=== PATIENT | male | born 1995 | race Caucasian/White ===

== ENCOUNTER 2017-01-04 16:26 | Emergency (ER) | payer SELFPAY ==
[~2017-01-04] VITALS: Ht 182.9 cm; Wt 116.0 kg
[~2017-01-04 16:26] MED LIST: HYDR-5688 PO; TYL325X PO
[2017-01-04 16:41] VITALS: TEMP 36.9; Ht 182.9 cm; Wt 116.0 kg
[2017-01-04] MEDS ORDERED: HYDR-5688 PO ×2 (17:12→19:40)
[2017-01-04] MEDS ORDERED: CYCL10TA6 PO (17:12)
--- NOTE | 2017-01-04 17:13 | EMERGENCY ROOM VISIT NOTE ---
ED Visit Note First contact with patient: 17:00 CHIEF COMPLAINT: Low back pain HISTORY OF PRESENT ILLNESS: This 21-year-old male patient presents to the emergency department ambulatory complaining of pain in the low back which began this morning. The patient reports that he was lifting something when he developed a sharp, stabbing pain in the left side of his low back. The pain is worse with walking or lying down. He states it is better if he sits forward. The pain was gradual in onset, is now constant and worse with movement. The patient notes the pain as sharp and a 6/10. The patient has taken ibuprofen and Tylenol without relief of the pain. The patient denies any loss of control of their bowel or bladder functions. There has been no leg numbness or weakness , and no change in sensation. No nausea or vomiting or abdominal pain. No chest pain or shortness of breath. No dysuria or increased urinary frequency. The patient does report a history of muscles in his back and inflammation of the discs. REVIEW OF SYSTEMS: A review of systems was performed with positives and pertinent negatives listed in the history of present illness. All other systems were reviewed and are negative. ALLERGIES: Morphine, naproxen, tramadol MEDICATIONS: No chronic medications PMH: No significant past medical history. SOCIAL HISTORY: The patient lives locally with family. PHYSICAL EXAM: VITALS: Vitals are noted on the nurse's note and reviewed by myself. Vital signs stable. GENERAL: This is a 21-year-old male, in no acute distress, nondiaphoretic, well- developed well-nourished. SKIN: The skin was without rashes, erythema, edema, or bruising. Capillary refill less than 2 seconds. NECK: Supple without nuchal rigidity. No cervical spine tenderness. No paraspinous muscle tenderness. HEART: Regular rate and rhythm without murmurs gallops or rubs. LUNGS: Clear to auscultation bilaterally without wheezes, rales or rhonchi. ABDOMEN: Positive bowel sounds x 4. Normal tympanic percussion. Soft, nontender, without masses or organomegaly. Dominguez sign negative. MUSCULOSKELETAL: No muscle atrophy, erythema, or edema noted of the back. There is no tenderness over the lumbar spinous processes. There is vague tenderness over the lumbar paraspinous muscles. There is no tenderness over the thoracic spine or paraspinous muscles. There are no muscle spasms present. The patient is slow to move around with maximum tenderness with extension. Negative straight leg raise test. NEURO: Patient was alert and oriented to person place and time. Normal sensation to light and sharp touch. Deep tendon reflexes 2+ in the lower extremities. Dorsalis pedis pulse 2+ bilaterally. Strength 5/5 and equal in the bilateral lower extremities. EMERGENCY DEPARTMENT COURSE: The patient was evaluated as above. His history and exam is not concerning for cauda equina syndrome or cord compression. The patient was given a home pack and prescription of Flexeril and [place] for pain. He was instructed to follow-up with his primary care provider for further evaluation of his back pain. He Was educated regarding worrisome symptoms which would necessitate return to the emergency department. The [place] prescription drug monitoring program was queried and no red flags were identified. The patient verbalized understanding and was discharged home in good condition. DIAGNOSIS: Lumbar back pain Current/Historical Medications Scheduled Cyclobenzaprine Hcl (Flexeril), 10 MG PO TID Ibuprofen (Advil), 200-600 MG PO Q4H Scheduled PRN Acetaminophen (Tylenol), 650 MG PO DIRECTED PRN for Pain Acetaminophen (Tylenol), 1,000 MG PO DIRECTED PRN for Pain Hydrocodone/Acetaminophen 5MG/325MG ([place] 5MG/325MG), 1-2 TABLET PO Q4H PRN for Pain Hydrocodone/Acetaminophen 5MG/325MG ([place] 5MG/325MG), 1-2 TABLET PO Q4H PRN for Pain Allergies Coded Allergies: Naproxen (Unverified Allergy, Mild, ITCHING/RASH, 10/06/16) Morphine (Unverified Allergy, Unknown, nausea/vomiting, 10/06/16) Tramadol (Unverified Allergy, Unknown, ITCHING/RASH/VOMITING, 10/06/16) Vital Signs Date Time Temp Pulse Resp B/P Pulse Ox O2 Delivery O2 Flow Rate FiO2 01/04/17 17:26 88 16 135/62 98 01/04/17 16:41 36.9 92 16 126/77 98 Room Air Medications Administered Medications (Trade) Dose Ordered Sig/Karlene Route Start Time Stop Time Status Last Admin Dose Admin Cyclobenzaprine HCl (FLEXERIL 10MG Home Pack) 1 homepack UD ONCE PO 01/04/17 17:15 01/04/17 17:16 DC 01/04/17 17:23 1 HOMEPACK Acetaminophen/ Hydrocodone Bitart ([place] 5/325mg Home Pack) 1 homepack UD ONCE PO 01/04/17 17:15 01/04/17 17:16 DC 01/04/17 17:24 1 HOMEPACK Departure Information Impression Primary Impression: Strain of lumbar region Dispostion Home / Self-Care Condition GOOD Prescriptions Hydrocodone/Acetaminophen 5MG/325MG ([place] 5MG/325MG) Tab 1-2 TABLET PO Q4H Y for Pain, #12 TAB For Initial Treatment Prov: Rolanda Spaulding .KARLIE 01/04/17 Cyclobenzaprine Hcl (FLEXERIL) 10 Mg Tab 10 MG PO TID for 3 Days, #9 TAB Prov: Rolanda Spaulding PA-C 01/04/17 Referrals No Doctor, Assigned (PCP) Patient Instructions My [facility] Additional Instructions You have been treated in the Emergency Department for Back Pain. You have been prescribed [place] to be used for pain control. This is a narcotic medication. You cannot drive or consume alcohol while on this medicine. This medicine should only be used for pain that cannot be controlled with over-the- counter pain medicines. You have been prescribed Flexeril (cyclobenzaprine) 1-2 tabs orally, three times per day. Do NOT exceed 30 mg (6 tabs) per day. Take your first dose at bedtime as it can make you drowsy. Always take all medications as prescribed. For pain control, you can use the following [id number] medicines (if >12 yo): - Regular strength (325mg/tab) Tylenol (acetaminophen) 2 tabs every 4-6 hours as needed. Do not exceed 12 tablets in a 24 hour period. Avoid taking more than 4 grams (4000 mg) of Tylenol per day. This includes any other sources of acetaminophen you may take on a regular basis. - Regular strength (200 mg/tab) Advil (ibuprofen) 1-2 tabs every 4-6 hours as needed. Do not exceed a dose of 3200 mg per day. If this is an acute injury, ice can be applied to the area of pain for the first 3 days to help decrease pain and inflammation. After the first 3 days, a heating pad can be used over the area for continued soothing relief. You should schedule a follow-up appointment in 2-3 days with your Primary Care Provider for further evaluation and treatment of your back pain. Return to the Emergency Department if your current symptoms worsen despite treatment course outlined above, or if you develop any of the following symptoms : intractable pain despite aforementioned treatment course, loss of control of your bowel or bladder, numbness or tingling in your groin, or development of a fever. Problem Qualifiers Primary Impression: Strain of lumbar region Encounter type: initial encounter Qualified Codes: S39.012A - Strain of muscle, fascia and tendon of lower back, initial encounter
[2017-01-04] MEDS ORDERED: NORCO 5/325MG HOME PACK PO ONE (17:15)
[2017-01-04] MEDS ORDERED: FLEXERIL HOME PACK 10 MG VIAL PO ONE (17:15)
[2017-01-04 17:26] VITALS: BP 135/62; PULSE 88; O2SAT 98
[2017-02-24] MEDS ORDERED: ACET-1311 PO (10:22)
== END 2017-01-04 17:27 | disposition home or self-care (01) ==
LOC: C.EDB 16:26 → C.EDD 17:27
DX: S39.012A Strain of muscle, fascia and tendon of lower back, initial encounter (principal); X50.0XXA Overexertion from strenuous movement or load, initial encounter

== ENCOUNTER 2017-02-04 17:12 | Emergency (ER) | payer SELFPAY ==
[~2017-02-04] VITALS: Ht 182.9 cm; Wt 111.9 kg
[2017-02-04 17:25] VITALS: TEMP 36.7; Ht 182.9 cm; Wt 111.9 kg
[2017-02-04] MEDS ORDERED: HYDR-5688 PO (18:25)
[2017-02-04] MEDS ORDERED: IBUP-1050 PO (18:48)
[2017-02-04] MEDS ORDERED: ACET-1256 PO (18:48)
[2017-02-04 18:51] VITALS: BP 149/90; PULSE 78; O2SAT 100
--- NOTE | 2017-02-05 23:13 | EMERGENCY ROOM VISIT NOTE ---
ED Visit Note First contact with patient: 17:28 CHIEF COMPLAINT: Tooth pain. HISTORY OF PRESENT ILLNESS: Mr. Guillen is a 21-year-old white male who ambulates into the ED complaining of dental pain. He reports a progressive dental pain for the last 3 days over the mandibular and maxillary wisdom teeth and the left maxillary canine tooth. He reports initially the pain was mild and has gradually increased in intensity. Currently he describes the discomfort as a deep achy sensation. His pain is nonradiating. He rates his discomfort 6/10. He has been using over-the- counter medications without relief of his discomfort. He denies any associated symptoms including fevers, chills, sweats, skin eruptions, skin color changes, recent dental trauma, sore throats, difficulty swallowing, voice changes, drooling, facial swelling . REVIEW OF SYSTEMS: As noted above in History of Present Illness. PMH: Patient denies. CURRENT MEDICATION: Patient denies. ALLERGIES TO MEDICATION: Morphine, naproxen, tramadol. SOCIAL HISTORY: Patient is currently employed; he lives with his parents and feels safe in his home environment; he admits to tobacco use and denies alcohol use. PHYSICAL EXAM: Vital Signs: Date Time Temp Pulse Resp B/P Pulse Ox O2 Delivery O2 Flow Rate FiO2 02/04/17 18:51 78 16 149/90 100 02/04/17 17:25 36.7 84 16 147/95 100 General: 21 year-old white male in mild distress due to pain, nontoxic appearing , afebrile and hemodynamically stable. Neurological: Awake, alert and oriented to person, place and time. Answering questions appropriately and following commands. Normal gait. Good hand eye coordination. No focal motor or sensory deficits. Skin: Warm, dry and pink. No soft tissue lesions, rashes, or trauma noted. HEENT: Atraumatic and normocephalic. Oral cavity is moist and pink. Airway is patent. Uvula is midline and no abscesses are seen. Airway is patent. Speech is normal. No drooling. No intraoral trauma is noted. Patient still has his wisdom teeth so all of his maxillary and mandibular teeth are packed in his mouth pretty tight and there is minimalbetween the teeth. The right maxillary canine is slightly darkened in color but I do not appreciate any abscess. There is no local gingiva erythema or edema. There is no palpable abscesses. No cervical or submandibular lymphadenopathy. ED COURSE: Patient is assessed as noted above. Patient is educated about his findings and instructed on he treatment plan; he verbalizes understanding and agreement with this plan. CLINIC IMPRESSION: Dental pain. DISPOSITION: Patient discharged home in stable condition; prior to departure he was reassessed and subjectively reported he was feeling better and rated his discomfort 4/10. PLAN: Comfort measures were discussed including a sliding pain scale of ibuprofen, acetaminophen and [place]. He was warned that [place] is a narcotic and once taking this medication she should not drink, drive or do any activities that require her full attention. Patient was encouraged to keep his followup with personal dentist for definitive care and treatment. Patient was encouraged to return the ED for uncontrolled pain, facial swelling or fevers or any new/concerning symptoms.
[2017-02-24] MEDS ORDERED: ACET-1311 PO (10:22)
== END 2017-02-04 18:52 | disposition home or self-care (01) ==
LOC: C.EDB 17:13 → C.EDD 18:52
DX: K08.89 Other specified disorders of teeth and supporting structures (principal)

== ENCOUNTER 2017-02-23 10:10 | Emergency (ER) | payer SELFPAY ==
[~2017-02-23] VITALS: Ht 182.9 cm; Wt 113.3 kg
[~2017-02-23 10:10] MED LIST changes: +ACET-1256 PO; +IBUP-1050 PO; -TYL325X PO
[2017-02-23 10:16] VITALS: TEMP 36.8; Ht 182.9 cm; Wt 113.3 kg
[2017-02-23] MEDS ORDERED: IBUPROFEN 600 MG TAB PO STA (10:41)
[2017-02-23] MEDS ORDERED: IBUP-1427 PO (10:45)
--- NOTE | 2017-02-23 10:45 | EMERGENCY ROOM VISIT NOTE ---
History Report prepared by Tea: Narcisa Parikh Under the Supervision of: Dr. Contreras Power M.D. First contact with patient: 10:30 Chief Complaint: DENTAL PAIN Stated Complaint: SWELLING IN MOUTH AND MOUTH PAIN Nursing Triage Summary: seen in er 2 wks ago for dental pain, seen by dentist a week later, appt with dentist march 11 for extraction, pt states he has swelling in his mouth and it became worse last night History of Present Illness The patient is a 21 year old male who presents to the Emergency Room with complaints of worsening bilateral dental pain and swelling. The patient was initially seen for mandibular and maxillary wisdom teeth pain 2 weeks ago in the ED. He was discharged with Vicodin at that time. He was not put on antibiotics, as there were no signs of infection. Since then, his pain has been worsening. He has noticed some swelling to the left side of his jaw and has also noticed a lump on the right side of his jaw. The patient is only able to eat very soft foods, as eating any more solid foods worsens his pain. He has followed up with a dentist and has an extraction scheduled for March 11. He has been taking Tylenol and ibuprofen without relief. Source of History: patient Onset: a few weeks ago Position: teeth (wisdom) Timing: worsening Modifying Factors (Worsening): eating Review of Systems All systems have been listed, reviewed, and are negative other than those previously mentioned. Please see Additional Medical History Sheet. Past Medical & Surgical Medical Problems: (1) Back strain Family History Diabetes mellitus Social History Smoking Status: Current Every Day Smoker Alcohol Use: none Housing Status: lives with family Occupation Status: unemployed Current/Historical Medications Scheduled PRN Acetaminophen (Tylenol), 325 MG PO DIRECTED PRN for Pain Ibuprofen (Advil), 200-600 MG PO Q4H PRN for Pain Ibuprofen Tab (Motrin), 600 MG PO Q6H PRN for Pain Allergies Coded Allergies: Naproxen (Unverified Allergy, Mild, ITCHING/RASH, 02/23/17) Morphine (Unverified Allergy, Unknown, nausea/vomiting, 02/23/17) Tramadol (Unverified Allergy, Unknown, ITCHING/RASH/VOMITING, 02/23/17) Physical Exam Vital Signs Date Time Temp Pulse Resp B/P Pulse Ox O2 Delivery O2 Flow Rate FiO2 02/23/17 10:55 83 17 125/80 95 02/23/17 10:16 36.8 93 18 161/80 97 Room Air Physical Exam GENERAL: Patient awake, alert, oriented x 3. Patient follows commands. Patient does not appear toxic. Patient is adequately hydrated and well- nourished. SKIN: No erythema, pallor, cyanosis or rash HEENT: Normal head, pupils equal, reactive to light and accommodation. Patient has what appear to be 4 wisdom teeth coming in with minor swelling. Ears normal. Oral cavity and posterior pharynx appear normal. Neck: No neck vein distention. No cervical or submandibular adenopathy. Medical Decision & Procedures Medications Administered Medications (Trade) Dose Ordered Sig/Karlene Route Start Time Stop Time Status Last Admin Dose Admin Ibuprofen (Motrin Tab) 600 mg NOW STAT PO 02/23/17 10:41 02/23/17 10:42 DC 02/23/17 10:55 600 MG ED Course 1034: Past medical records reviewed. The patient was evaluated in room A11. A complete history and physical examination was performed. 1041: Ordered Ibuprofen 600 mg PO. 1051: I discussed today's findings with the patient. He verbalized agreement of the treatment plan. The patient was discharged home. Medical Decision Nurses notes reviewed. Medical history sheet reviewed. Differential diagnosis includes but is not limited to: impacted wisdom teeth, odontalgia, dental abscesses. The patient is here with dental pain but does not appear to have an abscess/ infection. The patient states that he is allergic to Toradol but has taken ibuprofen. I do not feel comfortable providing additional narcotics for this patient. He is received at least 4 doses of narcotics from our institution the past several months. I have asked the patient to request his pain medications from his dentist. I do not believe the patient requires antibiotics at this time. The patient is scheduled to have extractions performed in March. [place] Drug Monitoring Program Search Results: patient reviewed within database Drug Monitoring Findings: Patient has 4 prescriptions for hydrocodone in the past 7 months. Impression Primary Impression: Odontalgia Scribe Attestation The scribe's documentation has been prepared under my direction and personally reviewed by me in its entirety. I confirm that the note above accurately reflects all work, treatment, procedures, and medical decision making performed by me. Departure Information Dispostion Home / Self-Care Prescriptions Ibuprofen Tab (MOTRIN) 600 Mg Tab 600 MG PO Q6H Y for Pain, #30 TAB Prov: Contreras Power M.D. 02/23/17 Referrals No Doctor, Assigned (PCP) Patient Instructions My [facility] Additional Instructions 600 mg ibuprofen every 6 hours until pain is relieved. Follow-up with your dentist for extractions as scheduled.
[2017-02-23 10:55] VITALS: BP 125/80; PULSE 83; O2SAT 95
--- NOTE | 2017-02-23 12:26 | Pharmacy Progress Note ---
ED Pharmacist Progress Note Date of Service: Feb 23, 2017. Received phone call from pharmacist Irina at [facility] ([phone]). She was concerned that pt should not have Rx for IBU filled as he reported allergy to NSAIDs. Dr Power's H&P stated the patient had been taking both IBU and Tylenol prior to evaluation in the ER. He had also received a dose of IBU in the ER today. I presented this information to the pharmacist. She stated she would discuss with the patient when he returned.
[2017-02-23] MEDS ORDERED: PENI500T2 PO (21:58)
[2017-02-24] MEDS ORDERED: ACET-1311 PO (10:22)
== END 2017-02-23 11:10 | disposition home or self-care (01) ==
LOC: C.EDB 10:11 → C.EDA 11:10
DX: K08.89 Other specified disorders of teeth and supporting structures (principal); Z83.3 Family history of diabetes mellitus; F17.210 Nicotine dependence, cigarettes, uncomplicated

== ENCOUNTER 2017-02-23 20:59 | Emergency (ER) | payer SELFPAY ==
[~2017-02-23] VITALS: Ht 182.9 cm; Wt 114.0 kg
[~2017-02-23 20:59] MED LIST changes: +IBUP-1427 PO
[2017-02-23 21:10] VITALS: TEMP 37.1; Ht 182.9 cm; Wt 114.0 kg
[2017-02-23] MEDS ORDERED: PENI500T2 PO (21:58)
--- NOTE | 2017-02-23 21:58 | EMERGENCY ROOM VISIT NOTE ---
ED Visit Note First contact with patient: 21:20 CHIEF COMPLAINT: Continued bilateral dental pain 2 weeks HISTORY OF PRESENT ILLNESS: Patient is a 21-year-old white male who returns to the emergency department for evaluation of dental pain. He complains of right and left-sided dental pain. Is going on for about 2 weeks. He was seen here couple of weeks ago and placed on a course of [place]. It was not felt that he required antibiotics at that time. Patient subsequently had follow-up with a dentist and is scheduled for oral surgery in the beginning of March. Patient was here earlier today again for complaints of dental pain. He was prescribed ibuprofen 600 mg tablets. Patient took one of these, then states that it made him vomit. He reports an allergy to naproxen, which causes itching and a rash, but per documentation he has tolerated ibuprofen without difficulty. He notes that he has a lump on the right side of his jaw, and feels like he has swollen lymph nodes in the left side of his jaw. He is concerned that he needs antibiotics and that his extraction will not take place if he develops an infection. He denies any drainage or discharge from the mouth. No fever or chills. REVIEW OF SYSTEMS: Review of systems as per HPI. All other systems reviewed were negative. At least 6 systems reviewed. PMH: Electronic medical records are reviewed and summarized as above/below. See Problem List. SOCIAL HISTORY: Patient lives at home. Smoker. PHYSICAL EXAM: Vital Signs: Reviewed Nurse's notes. CONSTITUTIONAL: Patient is a well-appearing 21-year-old white male who is awake and alert and in no acute distress. Vital signs are stable. EARS: Tympanic membranes intact, not inflamed, have normal contour. External canals clear. MOUTH: Overall the patient has fair dentition. The erupting wisdom teeth are partially covered by soft tissue. They are tender to palpation. He has a fractured right upper molar as well. Some general gingival inflammation is noted. No focal swelling along the gumline. No abscess. Mucous membranes moist, no lesions, tongue and gums appear normal. THROAT: No pharyngeal injection, exudates, or tonsillar hypertrophy. Airway is patent. No trismus noted. FACE: No facial swelling is appreciated. No cellulitic changes. NECK: No lymphadenopathy. ED course: The patient was seen and evaluated as above. His old records are reviewed. To cover for any potential apical abscess, he will be placed on a course of Pen-Vee K. He was encouraged to use acetaminophen for pain. He can also try taking the ibuprofen but with food to minimize the risk of stomach upset. It was not felt that he required additional prescription narcotics. He was encouraged to follow-up with his oral surgeon for extraction as she has scheduled. He does not have any evidence for facial cellulitis, drainable abscess or Matthew's angina at this time. Problem List Medical Problems: (1) Arm pain, right Status: Resolved (2) Back strain Status: Resolved (3) Pain, dental Status: Resolved (4) Strain of lumbar region Status: Resolved Current/Historical Medications Scheduled Penicillin V Potassium (Veetids), 500 MG PO QID Scheduled PRN Acetaminophen (Tylenol), 325 MG PO DIRECTED PRN for Pain Allergies Coded Allergies: Naproxen (Unverified Allergy, Mild, ITCHING/RASH, 02/23/17) Morphine (Unverified Allergy, Unknown, nausea/vomiting, 02/23/17) Tramadol (Unverified Allergy, Unknown, ITCHING/RASH/VOMITING, 02/23/17) Vital Signs Date Time Temp Pulse Resp B/P Pulse Ox O2 Delivery O2 Flow Rate FiO2 02/23/17 22:13 99 19 125/84 99 02/23/17 21:10 37.1 101 16 149/86 95 Room Air Medications Administered Medications (Trade) Dose Ordered Sig/Karlene Route Start Time Stop Time Status Last Admin Dose Admin Penicillin V Potassium (Pen-Vk 500MG Home Pack) 1 homepack UD ONCE PO 02/23/17 22:00 02/23/17 22:01 DC 02/23/17 22:00 1 HOMEPACK Departure Information Impression Primary Impression: Odontalgia Prescriptions Penicillin V Potassium (VEETIDS) 500 Mg Tab 500 MG PO QID, #40 TAB Prov: Latia Lira PA 02/23/17 Referrals No Doctor, Assigned (PCP) Patient Instructions My [facility] Additional Instructions Penicillin 500mg: Take one pill four times daily for 10 days for your dental infection. All antibiotics can cause diarrhea. If this occurs and you feel worse or it does not resolve in 1-2 days follow up with your doctor or return to the Emergency Department as this could be signs of serious underlying problems. Any medication can cause an allergic reaction, stop the pills immediately and return to the ER for rash, hives, breathing difficulties, or swelling. Acetaminophen(Tylenol) may be used for fever or pain. Use 1000mg every six hours as needed. Avoid using more than 4000mg in a 24 hour period. Saltwater gargles after meals and before bedtime. Soft foods. Followup with your dentist for definitive management. You may also follow up with your primary care physician for pain/care management until you can be seen by your dentist.
[2017-02-23] MEDS ORDERED: PENICILLIN HOME PACK 500MG (4 DOSES)BTL PO ONE (22:00)
[2017-02-23 22:13] VITALS: BP 125/84; PULSE 99; O2SAT 99
[2017-02-24] MEDS ORDERED: ACET-1311 PO (10:22)
== END 2017-02-23 22:14 | disposition home or self-care (01) ==
LOC: C.EDB 21:01 → C.EDD 22:14
DX: K08.89 Other specified disorders of teeth and supporting structures (principal); F17.210 Nicotine dependence, cigarettes, uncomplicated

== ENCOUNTER 2017-02-24 14:45 | Emergency (ER) | payer SELFPAY ==
[~2017-02-24] VITALS: Ht 182.9 cm; Wt 111.0 kg
[~2017-02-24 14:45] MED LIST changes: -ACET-1256 PO; +ACET-1311 PO; -HYDR-5688 PO; -IBUP-1050 PO; -IBUP-1427 PO; +PENI500T2 PO
[2017-02-24 14:46] VITALS: TEMP 36.6; Ht 182.9 cm; Wt 111.0 kg
[2017-02-24] MEDS ORDERED: OXYCODONE/ACETAMINOPHEN 5-325 TAB PO STA (15:17)
[2017-02-24] MEDS ORDERED: CEFTRIAXONE SOD 350MG/ML 1 GM VIAL IM ONE (15:30)
[2017-02-24 15:42] VITALS: BP 166/91; PULSE 96; O2SAT 99
--- NOTE | 2017-02-25 09:25 | EMERGENCY ROOM VISIT NOTE ---
History First contact with patient: 15:01 Chief Complaint: DENTAL PAIN Stated Complaint: MOUTH PAIN Nursing Triage Summary: left lower dental pain History of Present Illness The patient is a 21 year old male who presents to the Emergency Room with complaints of left sided lower dental pain for the past several days. Today is the patient's third visit in the past 24 hours to this facility for dental pain. He is currently on Pen-Vee K and has taken a total of 2 doses of this medication. He states that his pain is a 10/10. He was unable to sleep well last night because of his symptoms. The patient has not had fever or chills. No facial swelling. He has had some shotty lymphadenopathy with this dental pain. The patient has a dentist appointment scheduled in about 4 weeks. Review of Systems More than 10 systems were reviewed and otherwise negative with the exception of history of present illness. Past Medical/Surgical History Medical Problems: (1) Arm pain, right (2) Back strain (3) Pain, dental (4) Strain of lumbar region Family History Diabetes mellitus Social History Smoking Status: Current Every Day Smoker Alcohol Use: none Housing Status: lives with family Occupation Status: unemployed Current/Historical Medications Scheduled Penicillin V Potassium (Veetids), 500 MG PO QID Scheduled PRN Acetaminophen (Tylenol), 325 MG PO UD PRN for Pain Allergies Coded Allergies: Naproxen (Unverified Allergy, Mild, ITCHING/RASH, 02/23/17) Morphine (Unverified Allergy, Unknown, nausea/vomiting, 02/23/17) Tramadol (Unverified Allergy, Unknown, ITCHING/RASH/VOMITING, 02/23/17) Physical Exam Vital Signs Date Time Temp Pulse Resp B/P Pulse Ox O2 Delivery O2 Flow Rate FiO2 02/24/17 15:42 96 18 166/91 99 Room Air 02/24/17 14:46 36.6 83 16 141/99 98 Room Air Pain Rating (0-10): 0 Physical Exam VITALS: Vitals are noted on the nurse's note and reviewed by myself. Vital signs stable. GENERAL: Well-developed, well-nourished, white male, who is in no acute distress and resting comfortably. Patient is cooperative with the examination. HEAD: Normocephalic atraumatic. MOUTH: Mucous membranes moist. Tonsils are not enlarged. Pharynx without erythema, blood, or exudate. Uvula midline. Airway patent. No evidence of Ludwigs. Dentition overall good repair. The left lower wisdom tooth appears impacted and is tender on percussion. No active abscess. NECK: Supple without nuchal rigidity. Shotty lymphadenopathy. HEART: Regular rate and rhythm without murmurs gallops or rubs. LUNGS: Clear to auscultation bilaterally without wheezes, rales or rhonchi. No retractions or accessory muscle use. Medical Decision & Procedures Medications Administered Medications (Trade) Dose Ordered Sig/Karlene Route Start Time Stop Time Status Last Admin Dose Admin Ceftriaxone Sodium (Rocephin Im) 1,000 mg NOW ONCE IM 02/24/17 15:30 02/24/17 15:31 DC 02/24/17 15:41 1,000 MG Oxycodone/ Acetaminophen (Percocet 5-325mg Tab) 1 tab NOW STAT PO 02/24/17 15:17 02/24/17 15:19 DC 02/24/17 15:41 1 TAB ED Course Physical exam and history were performed. Nursing notes and EMR were reviewed. Patient appears to have dental pain for the past several days. This is his third visit to the ER in 24 hours for this complaint. At previous visits it was explained to the patient that we are not able to provide dental services through the ER. He does not have obvious facial swelling or abscess that may jeopardize his airway. The patient and I had a lengthy discussion regarding options of care. He has a likely dental infection and is being treated appropriately. The patient will be given 1 g IM Rocephin as well as a single dose of Percocet here in the department. He is to continue his Pen-Vee K as previously prescribed. While I was explaining appropriate care to the patient, his mother began to interject her displeasure with how we were treating her son. The mother is well -known to the emergency department due to her frequent visits. She began to demand narcotic pain medication for her son, which does not appear necessary. I explained at length that he is to continue his antibiotics and that we were treating him here in the ER. He may continue oyll-hlq-lftcnay analgesics and Orajel. The mother was dissatisfied with this decision. Overall the interaction with the patient and his family was concerning. A different provider just discharged the patient's sister who was seen for an identical complaint. There is concern for drug-seeking behavior or possible diversion of medication with the family. This case will need to be monitored in the future. For the time being the patient is to continue his Pen-Vee K. Hopefully the Rocephin and pain medication here well improve his symptoms long enough the oral antibiotics well alleviate his discomfort. The patient must keep his dental appointment. The family was otherwise invited back to the ER with any new, worsening, or concerning symptoms. The chart was completed utilizing [employer] Speech Voice Recognition Software. Grammatical errors, random word insertions, pronoun errors, and incomplete sentences are an occasional consequence of this system due to software limitations, ambient noise, and hardware issues. Any formal questions or concerns about the content, text, or information contained within the body of this dictation should be directly addressed to the provider for clarification. . Medical Decision Differential diagnosis includes, but is not limited to: Sprain, abscess, infection, Ludwigs, drug seeking, and others Impression Primary Impression: Pain, dental Departure Information Dispostion Home / Self-Care Condition GOOD Forms HOME CARE DOCUMENTATION FORM, IMPORTANT VISIT INFORMATION Patient Instructions My [facility] Additional Instructions You were seen and evaluated today on an emergency basis only. This is not a substitute for, or an effort to provide, complete comprehensive medical care. It is not possible to recognize and treat all injuries or illnesses in a single emergency department visit. For this reason it is recommended that you followup with your dentist as soon as possible for definitive care. The emergency department is not able to provide pain medication for ongoing dental issues. Continue your antibiotics as prescribed. You are welcome to return to the emergency department anytime with new, worsening, or concerning symptoms.
== END 2017-02-24 15:47 | disposition home or self-care (01) ==
LOC: C.EDB 14:46 → C.EDD 15:47
DX: K08.89 Other specified disorders of teeth and supporting structures (principal); F17.200 Nicotine dependence, unspecified, uncomplicated; Z87.828 Personal history of other (healed) physical injury and trauma; Z88.5 Allergy status to narcotic agent; Z88.8 Allergy status to other drugs, medicaments and biological substances; Z80.9 Family history of malignant neoplasm, unspecified

== ENCOUNTER 2017-03-23 15:03 | Emergency (ER) | payer OTHER ==
[~2017-03-23] VITALS: Ht 182.9 cm; Wt 109.0 kg
[~2017-03-23 15:03] MED LIST changes: -PENI500T2 PO
[2017-03-23 15:05] VITALS: BP 137/78; PULSE 100; TEMP 36.7; O2SAT 97; Ht 182.9 cm; Wt 109.0 kg
[2017-03-23] MEDS ORDERED: HYDR-5688 PO (15:50)
[2017-03-23] MEDS ORDERED: CYCL10TA6 PO (15:50)
--- NOTE | 2017-03-23 16:18 | EMERGENCY ROOM VISIT NOTE ---
ED Visit Note First contact with patient: 15:09 Chief Complaint: Lower back pain. History of Present Illness: Mr. Bowen for his a 21-year-old white male who ambulates into the ED complaining of lumbar back pain. Historically patient denies any significant past medical history. Patient reports 3 days ago he was moving out of his house into an apartment. He reports he was lifting a washing machine and when he had finished he developed severe pain in the bilateral sacroiliac area of the lumbar spine. He reports since then his pain has been constant. He describes it as a sharp and stabbing. He rates his discomfort 8/10. His pain is nonradiating. His pain worsens with all movement and palpation of the back. He has not identified any alleviating factors related to the pain. He reports he has been using Tylenol without relief of his discomfort. He denies any associated symptoms including fevers, chills, sweats, skin eruptions, skin color changes, upper respiratory tract symptoms, abdominal pain, nausea, vomiting, diarrhea, constipation, rectal bleeding, black/tarry stools, urinary symptoms, hematuria, bowel and bladder dysfunction, genital paresthesias, lower extremity weakness/numbness/ tingling. Review of Systems: As noted above in history of present illness. All body systems were reviewed and found to be negative as noted above. Past Medical History: Patient denies. Current Medications: Acetaminophen. Allergies to Medications: Morphine, Naprosyn and tramadol. Social History: Patient is currently employed; he feels safe in his home environment; he admits to tobacco use and denies alcohol use. Physical Examination: Vital Signs: Date Time Temp Pulse Resp B/P Pulse Ox O2 Delivery O2 Flow Rate FiO2 03/23/17 15:05 36.7 100 17 137/78 97 Room Air GENERAL: 21-year-old male in mild to moderate distress due to pain, nontoxic- appearing, afebrile and hemodynamically stable. NEUROLOGICAL: Awake, alert and oriented to person, place and time. Answering questions appropriately and following commands. Normal gait. Good hand eye coordination. No focal motor sensory deficits. SKIN: Warm, dry and pink. No soft tissue eruptions or trauma noted. HEENT: Atraumatic and normocephalic. BACK: No tenderness over the bony cervical and thoracic spine. Moderate tenderness over the bilateral sacroiliac and L5-S1 area without bony deformity, bony crepitus, swelling or ecchymosis. No step-offs. Decreased range of motion in all movements at the waist. Moderate palpable spasm in the lower lumbar paraspinous musculature. Negative straight leg raise test. No CVA tenderness. THORAX: Lungs sounds are clear to auscultation and equal bilaterally with symmetrical chest wall. ABDOMEN: Flat, soft and nontender. Positive bowel sounds in all quadrants. No guarding, rigidity or organomegaly. EXTREMITIES: Moves all extremities well on command and with purpose. All distal neurovascular statuses are intact and equal bilaterally. No calf tenderness or cords. Lower Extremities: 4/5 muscle strength in flexion, extension, abduction and abduction of the hips, flexion and extension of the knees, plantar flexion and dorsiflexion of the ankles and flexion and extension of the great toes. 2+ patellar and Achilles deep tendon reflexes intact and equal bilaterally. Distal pulses intact and equal bilaterally. The feet are warm and pink and capillary refill is brisk. He was able to distinguish light sensations through all dermatomes of the lower legs. ED Course: Patient is assessed as noted above. Patient was educated about today's findings and instructed on his treatment plan ; he verbalized understanding and agreement with this plan. Clinical Impression: Lumbar muscle strain with muscle spasm. Disposition: Patient discharged home in stable condition; prior to departure he was reassessed and subjectively reported he was feeling slightly better and rated his discomfort 6/10. Plan: Comfort measures were discussed with the patient including a prescription for muscle relaxers; Flexeril, proper lifting and moving techniques, ice and a sliding pain medication scale of acetaminophen or [place]; patient was given appropriate precautions for narcotic use and also his name was checked and the [facility] database no red flags were noted. Patient was encouraged to follow-up with family physician for recheck. Patient was signed off 3 days for pain and narcotic use. Patient was encouraged return the ED for any complicating symptoms, abnormal neurological symptoms or any new/concerning symptoms.
== END 2017-03-23 15:56 | disposition home or self-care (01) ==
LOC: C.EDB 15:04 → C.EDD 15:56
DX: S39.012A Strain of muscle, fascia and tendon of lower back, initial encounter (principal); M62.830 Muscle spasm of back; X50.9XXA Other and unspecified overexertion or strenuous movements or postures, initial encounter; Y93.E6 Activity, residential relocation; Z72.0 Tobacco use

== ENCOUNTER 2017-04-09 10:32 | Emergency (ER) | payer OTHER ==
[~2017-04-09] VITALS: Ht 182.9 cm; Wt 112.1 kg
[~2017-04-09 10:32] MED LIST changes: -ACET-1311 PO; +HYDR-5688 PO
[2017-04-09 10:40] VITALS: TEMP 36.7; Ht 182.9 cm; Wt 112.1 kg
[2017-04-09] MEDS ORDERED: ACET325T96 PO (11:12)
[2017-04-09] MEDS ORDERED: CYCLOBENZAPRINE HCL 5 MG TAB PO STA (11:13)
[2017-04-09] MEDS ORDERED: CYCLOBENZAPRINE HCL 10 MG TAB ONE (11:22)
--- NOTE | 2017-04-09 12:02 | DIAGNOSTIC IMAGING REPORT ---
L-SPINE MIN 4 VIEWS ROUTINE CLINICAL HISTORY: Low back pain s/p lifting heavy object COMPARISON: None FINDINGS: Alignment of lumbar spine is anatomic. Vertebral body heights are maintained. There is no fracture or suspicious lesion. A transitional vertebra at the lumbosacral junction is noted. IMPRESSION: No acute lumbar spine fracture or subluxation. Electronically signed by: Geovani Abbasi M.D. 04/09/2017 12:00 PM Dictated Date/Time: 04/09/2017 11:54 AM
[2017-04-09] MEDS ORDERED: HYDR-5688 PO (12:13)
[2017-04-09] MEDS ORDERED: CYCL10TA6 PO (12:13)
--- NOTE | 2017-04-09 12:14 | EMERGENCY ROOM VISIT NOTE ---
History First contact with patient: 11:06 Chief Complaint: BACK PAIN Stated Complaint: BACK PAIN-STRAINED MUSCLE History of Present Illness The patient is a 21 year old male who presents to the Emergency Room via private vehicle with complaints of "back pain, strain muscle". The patient states that he was seen here a couple weeks ago, for back pain after moving and lifting a lot of heavy objects. He states that he believes he pulled muscle that time, was given [place] and muscle relaxers and was doing well. He states that unfortunately 2 days ago he was lifting a heavy paint bucket, and developed pain in the low back again. He is tried Tylenol with some relief. He notes he has had trouble sleeping because when he moves the pain is worse. He rates the low back pain at rest as a 4-5/10. Does have a history of scoliosis. He denies any fevers, chills, chest pain, shortness of breath, recent trauma, IV drug use, leg weakness, any radiating down his legs, bowel or bladder incontinence, numbness or tingling in the genital region. Review of Systems A complete 6-point Review of Systems was discussed with the patient, with pertinent positives and negatives listed in the History of Present Illness. All remaining Review of Systems questions can be considered negative unless otherwise specified. Past Medical/Surgical History Medical Problems: (1) Arm pain, right (2) Back strain (3) Pain, dental (4) Strain of lumbar region Family History Diabetes mellitus Social History Smoking Status: Current Every Day Smoker Alcohol Use: none Housing Status: lives with family Occupation Status: unemployed Current/Historical Medications Scheduled Cyclobenzaprine Hcl (Flexeril), 10 MG PO TID Scheduled PRN Hydrocodone/Acetaminophen 5MG/325MG ([place] 5MG/325MG), 1-2 TABLET PO Q6 PRN for Pain Miscellaneous Medications Acetaminophen Tab (Tylenol), 1-2 TAB PO Allergies Coded Allergies: Naproxen (Unverified Allergy, Mild, ITCHING/RASH, 04/09/17) Morphine (Unverified Allergy, Unknown, nausea/vomiting, 04/09/17) Tramadol (Unverified Allergy, Unknown, ITCHING/RASH/VOMITING, 04/09/17) Physical Exam Vital Signs Date Time Temp Pulse Resp B/P (MAP) Pulse Ox O2 Delivery O2 Flow Rate FiO2 04/09/17 12:27 92 18 159/99 98 Room Air 04/09/17 10:40 36.7 98 18 143/99 98 Room Air Physical Exam VITAL SIGNS - Vital signs and nursing notes were reviewed. Vital signs stable. GENERAL -21-year-old male appearing his stated age who is in no acute distress. Communicates well with provider and answers questions appropriately. SKIN - Without rashes. HEAD - NC/AT. LUNGS - Chest wall symmetric without accessory muscle use, intercostals retractions, or central cyanosis. Normal vesicular breath sounds CTA B/L. No wheezes, rales, or rhonchi appreciated. CARDIAC - RRR with S1/S2. No murmur, rubs, or gallops appreciated. ABDOMEN - Abdominal contour without pulsations or visible masses. BS normoactive all four quadrants. No tenderness, palpable masses, hepatosplenomegaly, or ascites noted. MUSCULOSKELETAL: There is tenderness to palpation overlying the inferior paraspinous musculature. EXTREMITIES - No clubbing or peripheral cyanosis. No pretibial edema present. + 5/5 strength noted in UE/LE bilaterally. NEUROLOGIC - Cranial nerves II through XII grossly intact. Sensory intact to light touch throughout. Patellar reflexes +2/4. PSYCH - Pt is very pleasant and interacts well with examiner. Medical Decision & Procedures ER Provider Diagnostic Interpretation: L-SPINE MIN 4 VIEWS ROUTINE CLINICAL HISTORY: Low back pain s/p lifting heavy object COMPARISON: None FINDINGS: Alignment of lumbar spine is anatomic. Vertebral body heights are maintained. There is no fracture or suspicious lesion. A transitional vertebra at the lumbosacral junction is noted. IMPRESSION: No acute lumbar spine fracture or subluxation. Electronically signed by: Geovani Abbasi M.D. 04/09/2017 12:00 PM Dictated Date/Time: 04/09/2017 11:54 AM Medications Administered Medications (Trade) Dose Ordered Sig/Karlene Route Start Time Stop Time Status Last Admin Dose Admin Cyclobenzaprine HCl (Flexeril Tab) 10 mg STK-MED ONCE .ROUTE 04/09/17 11:22 04/09/17 11:23 DC 04/09/17 11:24 10 MG Medical Decision Patient was seen and evaluated as above. After obtaining a thorough history and physical examination previous visit was reviewed. Patient presents today with symptoms suggestive of that of a lumbar strain. He has no emergent findings on clinical examination. There is no abdominal pain. No evidence of cauda equina syndrome. Radiograph was obtained and was also negative. This was obtained to evaluate for any underlying emergent process. This was negative. I do believe she can be managed in the outpatient setting, as he was brought with Flexeril here with some relief. He'll be sent home with [place] and Flexeril. He is to follow up with his family doctor in today's visit. He states he has an appointment in 2 weeks. He was educated upon management today' s findings, educated upon worrisome symptoms which to return, had questions prior to discharge, and was discharged home in good condition. In evaluation treatment this patient following differential diagnoses were entertained: Lumbar strain, fracture, drug-seeking behavior, lumbar radiculopathy, cauda equina syndrome, among others. [place] Drug Monitoring Program Search Results: patient reviewed within database, no issues identified Impression Primary Impression: Strain of lumbar region Departure Information Dispostion Home / Self-Care Condition GOOD Prescriptions Cyclobenzaprine Hcl (FLEXERIL) 10 Mg Tab 10 MG PO TID, #15 TAB Prov: Harsha Acosta PA-C 04/09/17 Hydrocodone/Acetaminophen 5MG/325MG ([place] 5MG/325MG) Tab 1-2 TABLET PO Q6 Y for Pain, #18 TAB For Initial Treatment Prov: Harsha Acosta PA-C 04/09/17 Referrals No Doctor, Assigned (PCP) Patient Instructions My [facility] Additional Instructions You have been treated in the Emergency Department for Back Pain. You have received pain medicine in the emergency department which impairs your ability to operate a vehicle. It is illegal for you to drive after receiving these medicines. You have been prescribed NORCO to be used for pain control. This is a narcotic medication. You cannot drive or consume alcohol while on this medicine. This medicine should only be used for pain that cannot be controlled with over-the- counter pain medicines. You have been prescribed Flexeril (cyclobenzaprine) 1 tabs orally, three times per day. Do NOT exceed 30 mg (6 tabs) per day. Take your first dose at bedtime as it can make you drowsy. Always take all medications as prescribed. For pain control, you can use the following [id number] medicines (if >12 yo): - Regular strength (325mg/tab) Tylenol (acetaminophen) 2 tabs every 4-6 hours as needed. Do not exceed 12 tablets in a 24 hour period. Avoid taking more than 3 grams (3000 mg) of Tylenol per day. This includes any other sources of acetaminophen you may take on a regular basis. DO NOT TAKE WITH TYLENOL!! - Regular strength (200 mg/tab) Advil (ibuprofen) 1-2 tabs every 4-6 hours as needed. Do not exceed a dose of 3200 mg per day. If this is an acute injury, ice can be applied to the area of pain for the first 3 days to help decrease pain and inflammation. After the first 3 days, a heating pad can be used over the area for continued soothing relief. You should schedule a follow-up appointment in 2-3 days with your Primary Care Provider for further evaluation and treatment of your back pain. (PLEASE KEEP YOUR APPOINTMENT) Return to the Emergency Department if your current symptoms worsen despite treatment course outlined above, or if you develop any of the following symptoms : intractable pain despite aforementioned treatment course, loss of control of your bowel or bladder, numbness or tingling in your groin, or development of a fever. Thank you for your time
[2017-04-09 12:27] VITALS: BP 159/99; PULSE 92; O2SAT 98
== END 2017-04-09 12:28 | disposition home or self-care (01) ==
LOC: C.EDB 10:33 → C.EDC 12:28
DX: S39.012A Strain of muscle, fascia and tendon of lower back, initial encounter (principal); X58.XXXA Exposure to other specified factors, initial encounter; F17.200 Nicotine dependence, unspecified, uncomplicated; Z87.828 Personal history of other (healed) physical injury and trauma; Z88.5 Allergy status to narcotic agent; Z88.8 Allergy status to other drugs, medicaments and biological substances; Z83.3 Family history of diabetes mellitus